=== PATIENT | female | born 1950 | race Caucasian/White ===

== ENCOUNTER 2018-02-16 16:16 | Observation (INO) | payer BC ==
[2018-02-16] VITALS (7 sets, daily range): BP systolic 124–135; BP diastolic 68–83; PULSE 64–72; TEMP 97.6–97.8
[2018-02-16] MEDS ORDERED: VITAMINC500CH PO (16:39)
[2018-02-16] MEDS ORDERED: ARMOUR THYROID90 MG PO (16:39)
[2018-02-16] MEDS ORDERED: MULTIVITAMIN1 CTB PO (16:39)
[2018-02-16] MEDS ORDERED: VITAMIN D31000 IU PO (16:40)
[2018-02-16] MEDS ORDERED: BIOTIN300 MCG PO (16:41)
[2018-02-16] MEDS ORDERED: THE MEDICINE S200 M2 PO (16:42)
[2018-02-16] MEDS ORDERED: MILK THISTLE150 MG PO (16:42)
[2018-02-17 00:15] VITALS: BP 128/87; PULSE 86; TEMP 97.9
[2018-02-17 03:40] VITALS: BP 140/77; PULSE 93; TEMP 97.7
[2018-02-17 08:04] VITALS: BP 130/68; PULSE 70; TEMP 97.8
[2018-02-17] MEDS ORDERED: NORCO 325 MG-51 TAB PO (08:25)
[2018-02-17 12:15] VITALS: BP 160/78; PULSE 107; TEMP 98.7
== END 2018-02-17 10:54 | disposition home or self-care (01) ==
LOC: MEDICAL 16:16 → SDCO 16:16 → MEDICAL 16:37
DX: K35.80 Unspecified acute appendicitis (principal); E03.9 Hypothyroidism, unspecified; Z79.899 Other long term (current) drug therapy
CPT/HCPCS: G0378; J0330; J1100; J1885; J1956; J2405; J2704; J2710; J3010; J7120

== ENCOUNTER → 2018-02-16 | Outpatient (CLI) | payer BC ==
[~2018-02-16] MED LIST: ARMOUR THYROID90 MG PO; BIOTIN300 MCG PO; MILK THISTLE150 MG PO; MULTIVITAMIN1 CTB PO; NORCO 325 MG-51 TAB PO; THE MEDICINE S200 M2 PO; VITAMIN D31000 IU PO; VITAMINC500CH PO
== END ==
LOC: COL.RAD 14:39
DX: R10.31 Right lower quadrant pain (principal); M54.5 Low back pain
CPT/HCPCS: Q9967

== ENCOUNTER 2018-04-20 06:52 | Day surgery (SDC) | payer BC ==
[~2018-04-20] VITALS: Ht 167.6 cm; Wt 99.2 kg
[2018-04-20] MEDS ORDERED: PROBIOTIC FORMU1 CAP PO (07:16)
[2018-04-20 07:17] VITALS: BP 141/91; PULSE 70; TEMP 97.8
[2018-04-20 08:55] VITALS: BP 116/70; PULSE 71; TEMP 98.1
[2018-04-20 09:10] VITALS: BP 110/72; PULSE 71
[2018-04-20 09:25] VITALS: BP 110/73; PULSE 68
== END 2018-04-20 09:37 | disposition home or self-care (01) ==
LOC: SDCO 06:52
DX: Z12.11 Encounter for screening for malignant neoplasm of colon (principal); E03.9 Hypothyroidism, unspecified
CPT/HCPCS: OP; J2250; J2405; J3010; J7030